=== PATIENT | male | born 1995 | race African-American/Black ===

== ENCOUNTER 2020-12-18 15:11 | Emergency (ER) | payer OTHER ==
[~2020-12-18] VITALS: Ht 185.4 cm; Wt 88.5 kg
[2020-12-18 15:12] VITALS: BP 164/83
[2020-12-18 16:54] LABS: ABSOLUTE NEUTROPHILS 5.1 thou/uL (1.4-8.2); BASOPHILS 0.8 % (0.0-2.0); EOSINOPHILS 0.6 % (0.0-3.0); HEMATOCRIT 38.8 % (42.0-52.0); HEMOGLOBIN 13.4 gm/dL (14.0-18.0); LYMPHOCYTES 27.1 % (24.0-44.0); MCH 32.6 pg (26.0-34.0); MCHC 34.6 g/dL (28.0-37.0); MCV 94.2 fL (80.0-100.0); MONOCYTES 7.1 % (1.0-8.0); PLATELET COUNT 275 thou/uL (150-400); POLYS 64.4 % (36.0-66.0); RBC 4.12 mil/uL (4.50-6.00); RDW 13.9 % (10.5-14.5); WBC 7.9 thou/uL (4.0-11.0)
[2020-12-18 17:11] LABS: CALCIUM 9.2 mg/dL (8.5-10.1); CREATININE 1.3 mg/dL (0.7-1.3); POTASSIUM 4.2 mmol/L (3.5-5.1)
--- NOTE | 2020-12-19 09:23 | EKG ---
[place] [address] [facility] [place] [address] ELECTROCARDIOGRAM REPORT Name: CARLOS HUSSEIN Room [facility]: [id number] Admission: 12/18/20 Attend Phys: Discharge: 12/18/20 Date of : [birth year] Report #: [id number] [facility] ED Test Date: 2020-12-18 Test Time: 15:58:17 Pat Name: CARLOS HUSSEIN Department: Room: Gender: Receiver Dispatcher: NICOLÁS : 1995 Requested By: Darrel Lopez Order Number: [id number] MD: Rafael Venegas Measurements Intervals [place] Rate: 82 P: 69 [place]: 173 QRS: 67 QRSD: 77 T: 33 QT: 354 QTc: 414 Interpretive Statements Sinus rhythm Probable left atrial enlargement ST elev, probable normal early repol pattern No previous ECG available for comparison Electronically Signed On 12-19-2020 9:23:31 CDT by Rafael Venegas [email or web address] <ELECTRONICALLY SIGNED> By: Rafael Venegas MD, [facility] 12/19/20 0923 1558 1558 Rafael Venegas MD, FACC /EPI
== END 2020-12-18 17:30 | disposition home or self-care (01) ==
LOC: ER 15:11
PROVIDERS: Nurse Practitioner
DX: R20.0 Anesthesia of skin (principal); M79.602 Pain in left arm; R20.2 Paresthesia of skin